=== PATIENT | male | born 1985 ===

== ENCOUNTER 2019-04-13 07:59 | Outpatient (CLI) | payer OTHER, SELFPAY ==
--- NOTE | 2019-04-17 19:58 | SLEEP_ITS ---
Basic nocturnal polysomnogram. DATE OF STUDY: 04/13/2019 ORDERING PHYSICIAN: VY Schaeffer. REASON FOR THE STUDY: SHANE. HISTORY: This patient is a 33-year-old male, 71 inches tall, weighing 153 pounds with a body mass index of 21.3. He has a history of snoring and fatigue. His dentist has noted signs of dental erosion secondary to reflux. The patient has a documented history of reflux and has been on treatment for this. His dentist also suspected sleep apnea syndrome based on his oral exam. He had a prior basic nocturnal polysomnogram on February 02, 2019 for same symptoms including chronic fatigue and sleep paralysis. The dentist also had mentioned a concern about bruxism. He does wake up during the night. He has had severe reflux all of his adult life. He does awaken at night with heartburn and belching. He rarely snores loudly enough that others complain about it. He occasionally has trouble sleeping with a cold. His basic nocturnal polysomnogram showed poor sleep efficiency of 58.6% without supine REM. His apnea-hypopnea index was 15.5 in the supine position during non-REM sleep. He did desaturate to 88%. He returns for this study using Ambien to improve his sleep efficiency. MEDICAL COMORBIDITIES: Snoring, chronic fatigue, severe reflux on treatment. Other medical comorbidities include high anxiety, loud snoring, occasionally elevated blood pressure, bruxism. MEDICATIONS: Omeprazole 40 mg a day. HABITS: No current tobacco. One caffeinated beverage a day. Five alcoholic beverages a day. DESCRIPTION OF THE STUDY: On the Redford Sleepiness Scale, his score was 9. This was conducted as a basic nocturnal polysomnogram using the [employer] multiple channel system including EOG, EEG, submental EMG, EKG, nasal and oral airflow using thermistors, nasal pressure sensors, chest and abdominal belts, body position data and pulse oximetry. The study was scored using CMS guidelines. Duration of the study was 464.3 minutes. The sleep time was 413.4 minutes. Sleep efficiency was improved at 89%. Sleep latency was 13.4 minutes. REM latency was 147 minutes slightly prolonged. There were 47 awakenings and the patient spent 8.3% of the study awake after sleep onset 37.5 minutes. Sleep architecture showed 10.6% stage 1 sleep, 63% stage 2 sleep, no stage 3 sleep and 18.1% stage REM. The patient had 17.5% supine sleep during the study. There were 4 REM episodes. Sleep was somewhat fragmented with short episodes of wakefulness during the REM episodes. The overall apnea-hypopnea index is 5.8, all obstructive events. There were no events in supine REM. He had 2 obstructive hypopneas in nonsupine REM for an index of 1.5. He had 2 obstructive apneas, 33 obstructive hypopneas in supine non-REM and 3 obstructive hypopneas in nonsupine non-REM. The supine index was 26.6. Nonsupine index 0.9. The lowest desaturation was 84%. He spent 1.9 minutes below 88% saturation, 0.4% of the study. He had 41 desaturations of 4% or greater for an index of 5.3. AROUSALS: 138 arousals for an index of 17.8. There were 13 hypopneas for an index of 1.7, 9 snores for an index of 1.2, 116 spontaneous arousals for an index of 15. LIMB MOVEMENTS: No limb movements on the study. Snoring was loud intermittent, worse in supine sleep. EKG: Mean heart rate 70.4. There were some episodes of sinus bradycardia, but the mean heart rate was 70. EEG: Unremarkable. IMPRESSION: 1. This attended full night nocturnal polysomnogram shows mild obstructive sleep apnea syndrome G47.33 with an overall apnea-hypopnea index of 5.8, which is moderate during supine sleep with an index of 26.6. Decision to initiate CPAP is not based on positional sleep, but the patient could opt
== END 2019-04-13 08:00 | disposition home or self-care (01) ==
LOC: ANHCSM 08:00
PROVIDERS: Visit Provider Physician Assistant
DX: G47.33 Obstructive sleep apnea (adult) (pediatric) (principal)
CPT/HCPCS: 95810